=== PATIENT | male | born 1960 | race Caucasian/White ===

== ENCOUNTER 2024-04-19 19:30 | Emergency (ER) | payer SELFPAY ==
[2024-04-19 19:56] LABS: #Basophils Less than 0.03 10x3/uL (0.0-0.2); %Basophils 0.3 % (0.0-1.0); %Eosinophils 0.8 % (0.0-10.0); %Lymphocytes 57.9 % (21.0-51.0); %Monocytes 10.8 % (0.0-10.0); %Neutrophils 30.2 % (42.0-75.0); Mean Corpuscular Hemoglobin 31.1 pg (27.0-31.0); Mean Corpuscular Volume 88.9 fL (78.0-98.0); Mean Platelet Volume 8.4 fL (7.4-10.4); Platelet Count 255 10x3/uL (130-400); RBC Distribution Width 12.6 % (11.5-14.5)
[2024-04-19] MEDS ORDERED: methylPREDNISolone Sod Succ/PF 125 MG/2 ML VIAL ONE (19:57)
[2024-04-19] MEDS ORDERED: Ipratropium/Albuterol 3 ML NEB ONE (20:14)
[2024-04-19 20:15] LABS: ALT (SGPT) 27 U/L (8-55); AST (SGOT) 31 U/L (5-34); Albumin 3.7 g/dL (3.4-4.8); Alkaline Phosphatase 102 U/L (40-110); Anion Gap 14 mmol/L (10-20); BUN (Urea Nitrogen) 8 mg/dL (8.4-25.7); Bilirubin, Total 0.2 mg/dL (0.2-1.2); Calc. Creatinine Clearance 0 mL/min (70-130); Calcium 8.6 mg/dL (7.8-10.44); Carbon Dioxide 24 mmol/L (23-31); Chloride 108 mmol/L (98-107); Estimated GFR 98; Globulin 3.4 g/dL (2.4-3.5); Glucose 97 mg/dL (80-115); Lipase 90 U/L (8-78); Potassium 3.6 mmol/L (3.5-5.1); Protein, Total 7.1 g/dL (5.8-8.1); Sodium 142 mmol/L (136-145)
[2024-04-19 20:19] LABS: Troponin I Less than 0.010 ng/mL (< 0.028)
[2024-04-19 20:41] LABS: Influenza A by NAA Not Detected (NotDetected); Influenza B by NAA Not Detected (NotDetected); SARS-CoV-2 NAA Rapid Test DETECTED (NotDetected)
== END 2024-04-19 21:41 | disposition home or self-care (01) ==
LOC: ERS 19:30
DX: U07.1 COVID-19 (principal); J44.9 Chronic obstructive pulmonary disease, unspecified
CPT/HCPCS: 71045; 80053; 83690; 83880; 84484; 85025; 93005; 94640; 96374; J2930; J7620

== ENCOUNTER 2024-04-21 05:52 | Inpatient (IN) | payer SELFPAY ==
[2024-04-21 06:25] LABS: #Basophils Less than 0.03 10x3/uL (0.0-0.2); #Eosinphils Less than 0.03 10x3/uL (0.0-0.7); %Basophils 0.1 % (0.0-1.0); %Lymphocytes 22.3 % (21.0-51.0); %Monocytes 9.9 % (0.0-10.0); %Neutrophils 67.4 % (42.0-75.0); Hematocrit 41.8 % (42.0-52.0); Hemoglobin 14.5 g/dL (14.0-18.0); Mean Corpuscular HGB CONC 34.7 g/dL (32.0-36.0); Mean Corpuscular Hemoglobin 30.9 pg (27.0-31.0); Mean Corpuscular Volume 89.1 fL (78.0-98.0); Mean Platelet Volume 8.4 fL (7.4-10.4); Platelet Count 274 10x3/uL (130-400); RBC Distribution Width 12.8 % (11.5-14.5); Red Blood Cell (RBC) Count 4.69 mill/uL (4.70-6.10)
[2024-04-21] MEDS ORDERED: Dexamethasone 10 MG/ML VIAL ONE (06:37)
[2024-04-21] MEDS ORDERED: Ipratropium/Albuterol 3 ML NEB ONE ×2 (06:38→08:26)
[2024-04-21 06:43] LABS: ALT (SGPT) 25 U/L (8-55); AST (SGOT) 32 U/L (5-34); Albumin 4.2 g/dL (3.4-4.8); Alkaline Phosphatase 102 U/L (40-110); Anion Gap 10 mmol/L (10-20); BUN (Urea Nitrogen) 9 mg/dL (8.4-25.7); Bilirubin, Total 0.6 mg/dL (0.2-1.2); Calc. Creatinine Clearance 0 mL/min (70-130); Calcium 9.4 mg/dL (7.8-10.44); Carbon Dioxide 28 mmol/L (23-31); Chloride 102 mmol/L (98-107); Estimated GFR 102; Globulin 3.2 g/dL (2.4-3.5); Glucose 119 mg/dL (80-115); Magnesium 1.6 mg/dL (1.6-2.6); Potassium 3.3 mmol/L (3.5-5.1); Protein, Total 7.4 g/dL (5.8-8.1); Sodium 137 mmol/L (136-145)
[2024-04-21 06:48] LABS: Troponin I Less than 0.010 ng/mL (< 0.028)
[2024-04-21] MEDS ORDERED: Albuterol 200 PUFF (6.7GM INHALER) ONE (07:59)
[2024-04-21] MEDS ORDERED: Albuterol 2.5 MG (3 mL) NEB ONE (08:26)
[2024-04-21] MEDS ORDERED: Senokot S 8.6-50 MG TAB PO PRN (10:45)
[2024-04-21] MEDS ORDERED: Acetaminophen 325 MG TAB PO PRN (10:45)
[2024-04-21 11:03] LABS: Actual Bicarbonate (HCO3v) 27.1 mEq/L (22-28); Base Excess 3.1 mEq/L (-2.0 to +3.0); Calcium, Ionized (venous) 1.09 mmol/L (1.16-1.32); Chloride (VBG) 97 mmol/L (98-106); Hematocrit-VBG 44 % (42.0-52.0); Hemoglobin (Hb) 15.1 g/dL (13.1-17.2); Potassium (VBG) 3.45 mmol/L (3.70-5.30); Sodium 137 mmol/L (133-146); pH (venous) 7.456 (7.32-7.43)
[2024-04-21] MEDS ORDERED: Azithromycin 500 MG VIAL ONE (11:03)
[2024-04-21] MEDS ORDERED: Potassium Chloride 20 MEQ TAB ONE (11:03)
[2024-04-21] MEDS ORDERED: Sodium Chloride 0.9% 100 ML ONE (11:04)
[2024-04-21] MEDS ORDERED: Benzonatate 100 MG CAP PO PRN (11:17)
[2024-04-21 11:30] LABS: Troponin I Less than 0.010 ng/mL (< 0.028)
[2024-04-21] MEDS ORDERED: Iopamidol-370 76% 500 ML MDV (1 ML CHARGE) ONE (11:37)
[2024-04-21] MEDS: Potassium Chloride 20 MEQ TAB PO SCH (12:28)
[2024-04-21] MEDS: cefTRIAXone\\ROCEPHIN 1 GM in Sodium Chloride 0.9% 100 ML IVPB SCH (12:28)
[2024-04-21] MEDS: Enoxaparin 40 MG (0.4 mL) SYRINGE SC SCH (12:28)
[2024-04-21 13:03] VITALS: BMI 22.1
[2024-04-21] MEDS: Albuterol 200 PUFF (6.7GM INHALER) INH SCH (14:02)
[2024-04-21] MEDS: Magnesium Sulfate In Water 4 GM in Premix 1 BAG IVPB SCH (14:33)
[2024-04-21] MEDS: Thiamine 100 MG TAB PO SCH (14:33)
[2024-04-21] MEDS: REMDESIVIR 200 MG in Sodium Chloride 0.9% 250 ML 210 ML IV SCH (16:39)
[2024-04-21] MEDS: Lisinopril 20 MG TAB PO SCH (21:57)
[2024-04-22] MEDS: Atorvastatin Calcium 20 MG TAB PO SCH (08:29)
[2024-04-22] MEDS: Amlodipine 5 MG TAB PO SCH (08:29)
[2024-04-22] MEDS: Folic Acid 1 MG TAB PO SCH (08:29)
[2024-04-22] MEDS: Multivit, Therapeutic 1 TAB PO SCH (08:29)
[2024-04-22] MEDS: Enoxaparin 40 MG (0.4 mL) SYRINGE SC SCH (08:30)
[2024-04-22] MEDS ORDERED: Ipratropium/Albuterol 3 ML NEB NEB PRN (08:30)
[2024-04-22] MEDS ORDERED: Non-Formulary Item 1 EACH (Budesonide-Formoterol [Symbicort 80-4.5] 80 MG/4.5 MG Aer) INH SCH (09:00)
[2024-04-22] MEDS ORDERED: Non-Formulary Item 1 EACH (Tiotropium [Spiriva Handihaler] 18 MCG Box) INH SCH (09:00)
[2024-04-22] MEDS: Dexamethasone 6 MG in Sodium Chloride 0.9% 50 ML IVPB SCH (10:25)
[2024-04-22] MEDS: Ipratropium Bromide 2.5 ml Neb NEB SCH (13:02)
[2024-04-22] MEDS: Azithromycin 500 MG in Sodium Chloride 0.9% 250 ML 250 ML IVPB SCH (13:20)
[2024-04-22] MEDS: REMDESIVIR 100 MG in Sodium Chloride 0.9% 250 ML 230 ML IV SCH (14:43)
[2024-04-22] MEDS: Mometasone 100 MCG/Formoterol 5 MCG 120 PUFF INHALER INH SCH (19:10)
[2024-04-22] MEDS: Lorazepam 1 MG TAB PO PRN (21:07)
[2024-04-22] MEDS: guaiFENesin ER 600 MG TAB PO PRN (21:07)
[2024-04-23 04:36] LABS: Hematocrit 42.2 % (42.0-52.0); Hemoglobin 14.4 g/dL (14.0-18.0); Mean Corpuscular HGB CONC 34.1 g/dL (32.0-36.0); Mean Corpuscular Volume 90.8 fL (78.0-98.0); Platelet Count 260 10x3/uL (130-400); RBC Distribution Width 12.7 % (11.5-14.5); Red Blood Cell (RBC) Count 4.65 mill/uL (4.70-6.10)
[2024-04-23 05:07] LABS: Anion Gap 11 mmol/L (10-20); BUN (Urea Nitrogen) 19 mg/dL (8.4-25.7); Calc. Creatinine Clearance 96 mL/min (70-130); Calcium 8.9 mg/dL (7.8-10.44); Carbon Dioxide 23 mmol/L (23-31); Chloride 103 mmol/L (98-107); Estimated GFR 103; Glucose 103 mg/dL (80-115); Sodium 133 mmol/L (136-145)
[2024-04-23] MEDS: Dexamethasone 10 MG/ML VIAL SLOW IVP SCH (09:15)
[2024-04-24 04:52] LABS: Hematocrit 41.1 % (42.0-52.0); Hemoglobin 14.2 g/dL (14.0-18.0); Mean Corpuscular HGB CONC 34.5 g/dL (32.0-36.0); Mean Corpuscular Hemoglobin 30.7 pg (27.0-31.0); Mean Corpuscular Volume 88.8 fL (78.0-98.0); Mean Platelet Volume 8.8 fL (7.4-10.4); Platelet Count 261 10x3/uL (130-400); RBC Distribution Width 12.4 % (11.5-14.5); Red Blood Cell (RBC) Count 4.63 mill/uL (4.70-6.10)
[2024-04-24 04:59] LABS: Anion Gap 14 mmol/L (10-20); BUN (Urea Nitrogen) 17 mg/dL (8.4-25.7); Calc. Creatinine Clearance 101 mL/min (70-130); Calcium 8.8 mg/dL (7.8-10.44); Carbon Dioxide 22 mmol/L (23-31); Chloride 104 mmol/L (98-107); Estimated GFR 104; Glucose 99 mg/dL (80-115); Potassium 3.9 mmol/L (3.5-5.1); Sodium 136 mmol/L (136-145)
[2024-04-24] MEDS: REMDESIVIR 100 MG in Sodium Chloride 0.9% 250 ML 230 ML IV SCH (14:41)
[2024-04-25 16:37] VITALS: BP 134/85; TEMP 97.9
== END 2024-04-25 17:45 | disposition home or self-care (01) | DRG 177 ==
LOC: ERS 05:52 → ERHOLD 09:21 → 2SW 12:43 → OBSVTOIN 04-22 08:30
PROVIDERS: ADMIT Internal Medicine; ATTEND Internal Medicine
PROC: XW033E5 Introduction of Remdesivir Anti-infective into Peripheral Vein, Percutaneous Approach, New Technology Group 5 (ICD-10-PCS; principal; 2024-04-21)
DX: U07.1 COVID-19 (principal); J96.01 Acute respiratory failure with hypoxia; J44.1 Chronic obstructive pulmonary disease with (acute) exacerbation; I10 Essential (primary) hypertension; R91.1 Solitary pulmonary nodule; F10.20 Alcohol dependence, uncomplicated; F17.200 Nicotine dependence, unspecified, uncomplicated; Z71.6 Tobacco abuse counseling; Z79.51 Long term (current) use of inhaled steroids; Z79.899 Other long term (current) drug therapy; Z71.41 Alcohol abuse counseling and surveillance of alcoholic
CPT/HCPCS: 36415; 71045; 71275; 80048; 80053; 82805; 83735; 83880; 84145; 84484; 85025; 85027; 86141; 93005; 94640; 94664; 94760; 96372; 96374; 96375; 96376; G0378; J0248; J0456; J0696; J1100; J1650; J3475; J7050; J7611; J7620; J7644; Q9967